=== PATIENT | female | born 1935 | race Caucasian/White ===

== ENCOUNTER 2016-09-16 14:31 | Inpatient (IN) | payer OTHER ==
[2016-09-16] MEDS ORDERED: ZOFRAN IV PRN (15:17)
[2016-09-16] MEDS ORDERED: TYLENOL PO PRN (15:17)
[2016-09-16] MEDS ORDERED: NS 1,000 ML IV PRN (15:17)
[2016-09-16] MEDS ORDERED: DIFLUCAN PO ONE (15:28)
[2016-09-16] MEDS ORDERED: FLUZONE QUAD 2016-2017 SYRINGE IM ONE (16:11)
--- NOTE | 2016-09-16 16:20 | HISTORY AND PHYSICAL ---
PRIMARY CARE PHYSICIAN: Dr. Marr. CHIEF COMPLAINT: Multiple falls, altered mental status, decreased appetite. HISTORY OF PRESENTING ILLNESS: This is an 80-year-old female who was seen at her primary care physician's office today and sent as a direct admit for having multiple falls at home, increased confusion with altered mental status, decreased appetite. Family at bedside and states that the patient has been falling almost on a daily basis at home and is unable to keep her center of balance and is leaning to the left when she ambulates and then falls without assistance. She is requiring increased amount of care. She has had increased confusion. Today she is able to tell me her name only but unable to tell me where she is, what month, day or year this is or is unable to tell me the name of the hospital. Her appetite has decreased according to the daughters who were are her caregiver. She has had some incontinent episode and vaginal itching. They feel that she most likely has a yeast infection. So at this time we will admit her. We will obtain a basic metabolic panel, a CBC, a magnesium, TSH and a UA with reflex culture today. Will get a head CT without contrast and a 2-view chest x-ray. Will start her on normal saline at 50 mL an hour, Zofran 4 mg IV q.4 hours p.r.n. and Tylenol along with a healthy heart diet and place her on telemetry and then she will be admitted for further evaluation and treatment. PAST MEDICAL HISTORY: Of vascular dementia, CVA, TIA, hypertension, COPD, emphysema, GERD, colon cancer x2 with her last chemotherapy in January 2013, irritable bowel syndrome, hypothyroidism, anxiety, depression and osteoarthritis. PAST SURGICAL HISTORY: Of colon resection with ileostomy and reversal of the colon resection x2, a port placement, bilateral knee replacement, cholecystectomy and a hysterectomy. FAMILY HISTORY: Noncontributory. SOCIAL HISTORY: She currently lives with her daughter. Denies any tobacco, alcohol, or illicit drug use. ALLERGIES: Morphine. HOME MEDICATIONS: We are obtaining a list of her home medications and we will restart those as appropriate. LABS: Again we are obtaining BMP, CBC, magnesium, TSH, UA with reflex culture today, a head CT without contrast and 2-view chest x-ray today. REVIEW OF SYSTEMS: Unable to obtain due to patient's confusion. PHYSICAL EXAMINATION: GENERAL: This is an 80-year-old female who is sitting on the side of the bed unable to answer all questions. Previous medical record and family at bedside to give history. HEENT: Normocephalic and atraumatic. Pupils are equal, round, reactive to light. Extraocular movements are intact. Oropharynx and nares are clear. NECK: Supple. LUNGS: Clear to auscultation bilaterally with equal lung expansion and chest wall movement. HEART: With regular rate and rhythm. No murmurs, rubs, or gallops. ABDOMEN: Soft, nontender, nondistended. Bowel sounds are present x4 quadrants. EXTREMITIES: No clubbing, cyanosis, or edema. NEUROLOGICAL: Cranial nerves 2-12 appear grossly intact. ASSESSMENT: 1. Altered mental status. 2. Multiple falls. 3. Vascular dementia history of worsening. 4. Vaginal candidiasis. 5. Hypertension. 6. Gastroesophageal reflux disease. 7. Hypothyroidism. PLAN: She has been admitted to the medical unit at [facility]. Placed on telemetry. Healthy heart diet. Again we are checking a BMP, CBC, magnesium, TSH and UA with reflex culture today, head CT without contrast and a 2-view chest x-ray today. Will place on normal saline at 50 mL an hour, Tylenol 650 mg p.o. q.4 hours p.r.n., Zofran 4 mg IV q.4 hours p.r.n., Diflucan 200 mg x1 now. Will obtain a current list of her home medications, restart those as appropriate. This most likely may be related to a urinary tract infection but again will have to wait on all of her labs and radiology report to review and further orders when those tests are resulted. Dictated by ARABELLA Glass for Samir Rosenbaum MD pt examined, discussed above plan with arabella, await results for further recoomendations [facility] MTDD
[2016-09-16 16:34] LABS: MANUAL DIFF NEEDED? NO
[2016-09-16 16:37] LABS: BASO% 0.6 % (0.0-0.8); EOS# 0.03 X1000 (0.0-0.7); EOS% 0.6 % (0.0-10.0); HEMATOCRIT 40.2 % (37.0-47.0); IMM GRAN# 0.02 X1000 (0.0-0.04); IMM GRAN% 0.4 % (0.0-0.5); LYMPH# 1.24 X1000 (1.2-3.4); MCH 28.3 PG (27-31); MCHC 32.3 g/dL (33-37); MCV 87.6 FL (81-99); MONO# 0.62 X1000 (0.11-0.59); MONO% 11.5 % (1.7-9.3); MPV 9.9 FL (7.4-10.4); NEUT% 63.9 % (42.2-75.2); PLT 239 X1000 (130-400); RBC 4.59 XMIL (4.2-5.4)
[2016-09-16 16:53] LABS: CALCIUM 10.8 mg/dL (8.8-10.2); MAGNESIUM 2.2 mg/dL (1.5-2.7); POTASSIUM 4.1 mmol/L (3.5-5.1)
[2016-09-16 17:29] LABS: URINE CULTURE PL NEEDED? NO
[2016-09-16 17:35] LABS: BILIRUBIN URINE NEGATIVE (NEGATIVE); BLOOD URINE NEGATIVE (NEGATIVE); CLARITY CLEAR (CLEAR); COLOR YELLOW; GLUCOSE URINE NEGATIVE (NEGATIVE); LEUKOCYTES URINE NEGATIVE (NEGATIVE); NITRITE URINE NEGATIVE (NEGATIVE); PROTEIN URINE NEGATIVE (NEGATIVE); UROBILINOGEN URINE NORMAL
[2016-09-16 17:42] LABS: URINE EPITHELIAL CELLS <10 /HPF (<10); URINE SOURCE CATH; URINE WBC <10 /HPF (<10)
[2016-09-16] MEDS: HALDOL IV PRN ×2 (18:23→22:19)
[2016-09-16] MEDS ORDERED: GEODON IM ONE (23:20)
[2016-09-16] MEDS ORDERED: STERILE WATER INJ. INJ ONE (23:20)
[2016-09-17 06:29] LABS: MANUAL DIFF NEEDED? NO
[2016-09-17 06:34] LABS: BASO% 0.3 % (0.0-0.8); EOS# 0.06 X1000 (0.0-0.7); HEMATOCRIT 37.6 % (37.0-47.0); HEMOGLOBIN 12.3 g/dL (12.0-16.0); IMM GRAN# 0.01 X1000 (0.0-0.04); IMM GRAN% 0.2 % (0.0-0.5); LYMPH# 1.19 X1000 (1.2-3.4); MCHC 32.7 g/dL (33-37); MCV 85.6 FL (81-99); MONO% 11.8 % (1.7-9.3); MPV 10.2 FL (7.4-10.4); NEUT% 66.7 % (42.2-75.2); PLT 220 X1000 (130-400); RBC 4.39 XMIL (4.2-5.4)
[2016-09-17 06:54] LABS: AGAP 9; BUN 10 mg/dL (8-22); CALCIUM 11.1 mg/dL (8.8-10.2); CHLORIDE 103 mmol/L (98-107); COSMO 279; POTASSIUM 3.5 mmol/L (3.5-5.1); SODIUM 140 mmol/L (136-145); TCO2 28 mmol/L (25-35)
--- NOTE | 2016-09-17 08:13 | Diag Imaging Result Document ---
PROCEDURE NAME: HEAD W/O CONTRAST - 09/16/[address] SCAN OF THE BRAIN: INDICATION: Altered mental status. Preliminary interpretation was given by the on-call radiologist. FINDINGS: There is diffuse cerebral atrophy. There is decreased attenuation within the deep white matter consistent with microvascular disease. There are old lacunar infarcts. No acute infarct or hemorrhage is appreciated. There is no midline shift or mass effect. The calvarium appears intact. There is some limitation of detail by patient motion. IMPRESSION: 1. Atrophy and microvascular disease. 2. No acute intracranial abnormality is appreciated.
--- NOTE | 2016-09-17 08:18 | Diag Imaging Result Document ---
PROCEDURE NAME: CHEST-2 VIEWS - 09/16/2016 CHEST, TWO VIEWS: INDICATION: Cough. FINDINGS: There is pulmonary emphysema. There is a right Port-A-Cath. The pulmonary vasculature is not congested. No acute infiltrates or effusions are demonstrated. There is a moderate hiatal hernia. IMPRESSION: 1. Emphysema. 2. No acute abnormality is identified.
--- NOTE | 2016-09-17 14:24 | PROGRESS NOTE ---
DATE: 09/17/2016 SUBJECTIVE: The patient sitting up in bed. No complaints voiced. OBJECTIVE: Vital Signs: Temperature 97.2 degrees, pulse 88, respirations 18, blood pressure 139/98, saturating 99% on room air. General: This is an 80-year-old female who is sitting up in the bed, is alert and oriented to person only. "She states she is getting ready to go home." HEENT: Normocephalic and atraumatic. Pupils are equal, round, and reactive to light. Extraocular movements are intact. Oropharynx and nares are clear. Neck is supple. Lungs are clear to auscultation bilaterally with equal lung expansion and chest wall movement. Heart with regular rate and rhythm. No murmurs, rubs, or gallops. Abdomen is soft, nontender, nondistended. Bowel sounds are present x4 quadrants. Extremities: No clubbing, cyanosis, or edema. Neurologic: The cranial nerves 2-12 appear grossly intact. LABORATORY DATA: White blood cell count of 5.95, hemoglobin 12.3, hematocrit 37.6, platelets 220,000. Sodium of 140, potassium 3.5, chloride 103, CO2 of 28. BUN of 10, creatinine 0.8. Glucose 103. Urinalysis from yesterday was negative. IMAGING: Head CT showed atrophy and microvascular changes. No acute intracranial abnormality was appreciated. Chest x-ray showed emphysema but no acute findings. ASSESSMENT AND PLAN: 1. Altered mental status. The patient remains confused and is alert and oriented to person only. 2. Multiple falls. We will consult physical therapy to evaluate and treat. 3. Vascular dementia, history of. It is worsening, and we will continue her medication regimen. 4. Vaginal candidiasis has been treated and will follow. 5. Hypertension. Continue current medication regimen. 6. Gastroesophageal reflux disease. 7. Hypothyroidism. We will recheck CBC and BMP in the a.m. Dictated by ARABELLA Glass for Samir Rosenbaum MD pt examined, agree with above, will check on hypercalcemia issues, r/o hyperparathyroidism [facility] MTDD
[2016-09-17] MEDS ORDERED: NORCO-10 PO PRN (15:24)
[2016-09-17] MEDS ORDERED: ZOFRAN PO PRN (15:24)
[2016-09-17] MEDS ORDERED: STERILE WATER INJ. ONE (15:37)
[2016-09-17] MEDS: GEODON IM PRN ×2 (15:41→21:39)
[2016-09-17] MEDS: XANAX PO PRN (18:38)
[2016-09-17] MEDS ORDERED: ZYPREXA ZYDIS PO ONE (19:02)
[2016-09-17] MEDS ORDERED: PHENOBARBITAL IV PRN (19:03)
[2016-09-17] MEDS: ZYPREXA ZYDIS PO SCH (20:12)
[2016-09-17] MEDS: STERILE WATER INJ. INJ PRN (21:40)
[2016-09-18] MEDS: XANAX PO PRN (00:21)
[2016-09-18 06:11] LABS: BASO% 0.7 % (0.0-0.8); EOS# 0.15 X1000 (0.0-0.7); EOS% 1.3 % (0.0-10.0); HEMATOCRIT 37.3 % (37.0-47.0); HEMOGLOBIN 11.8 g/dL (12.0-16.0); IMM GRAN# 1.48 X1000 (0.0-0.04); IMM GRAN% 13.1 % (0.0-0.5); LYMPH# 2.08 X1000 (1.2-3.4); LYMPH% 18.4 % (20.5-51.1); MANUAL DIFF NEEDED? YES; MCH 30.4 PG (27-31); MCHC 31.6 g/dL (33-37); MCV 96.1 FL (81-99); MONO# 0.78 X1000 (0.11-0.59); MONO% 6.9 % (1.7-9.3); MPV 8.6 FL (7.4-10.4); NEUT% 59.6 % (42.2-75.2); PLT 306 X1000 (130-400); RBC 3.88 XMIL (4.2-5.4)
[2016-09-18 06:50] LABS: AGAP 7; BUN 24 mg/dL (8-22); CALCIUM 8.9 mg/dL (8.8-10.2); CHLORIDE 103 mmol/L (98-107); COSMO 282; SODIUM 140 mmol/L (136-145); TCO2 30 mmol/L (25-35)
[2016-09-18] MEDS ORDERED: ZOFRAN ODT PO PRN (06:58)
[2016-09-18 07:17] LABS: EOS 1 % (1-10); LYMPHS 18 % (21-51); MONO 5 % (1-9)
[2016-09-18] MEDS ORDERED: HYDROXYZINE PO SCH (09:00)
[2016-09-18] MEDS: SYNTHROID PO SCH (10:39)
[2016-09-18] MEDS: ASPIRIN PO SCH (10:40)
[2016-09-18] MEDS: LEXAPRO PO SCH (10:40)
[2016-09-18] MEDS: PLAVIX PO SCH (10:40)
[2016-09-18] MEDS: FOLTX PO SCH (10:40)
--- NOTE | 2016-09-18 11:00 | PROGRESS NOTE ---
DATE: 09/18/2016 SUBJECTIVE: The patient is resting quietly in bed. Daughter at bedside. No complaints voiced. OBJECTIVE: Vital Signs: Temperature 97.8 degrees, pulse 94, respirations 20, blood pressure 110/70, satting 98% on room air. General: This is a an 80-year-old female, who is sitting up in the bed. No complaints voiced. HEENT: Normocephalic and atraumatic. Pupils are equal, round, reactive to light. Extraocular movements are intact. Oropharynx and nares are clear. Neck: Supple. Lungs: Were clear to auscultation bilaterally with equal lung expansion and chest wall movement. Heart: Regular rate and rhythm. No murmurs, rubs, or gallops. Abdomen: Soft, nontender, nondistended. Bowel sounds are present x4 quadrants. Extremities: No clubbing, cyanosis, or edema. Neurological: Cranial nerves 2-12 are grossly intact. LABORATORY DATA: Showed a white blood cell count of 11.30, hemoglobin 11.8, hematocrit 37.3, platelets 306. Sodium 140, potassium 4.0, chloride 103, CO2 30, BUN of 24 with a creatinine of 0.5. Calcium 8.9. PTH intact was 72. B 12 was 444 with a folate of 34. Her RPR was nonreactive. ASSESSMENT/PLAN: 1. Altered mental status is stable. She continues to be alert and oriented to person only. Confusion to place and time and situation. 2. Multiple falls. Physical therapy to evaluate and treat. 3. Hyperparathyroidism. Will get a parathyroid ultrasound today and evaluate those results. 4. Vascular dementia. Continue her medication regimen. 5. Hypertension. Continue her current medication regimen. Dictated by ARABELLA Glass for Samir Rosenbaum MD pt examined, agree with above working up hypercalcemia, but todays numbers are normal, will follow, scan is pending today , plan for dc to rehab tomorrow [facility]
--- NOTE | 2016-09-18 17:05 | Diag Imaging Result Document ---
PROCEDURE NAME: PARATHYROID - 09/18/2016 SESTAMIBI PARATHYROID SCAN: COMPARISON: CT cervical spine, 04/13/2016. FINDINGS: 20.7 millicurie of sestamibi was administered. Immediate and delayed images were obtained. There is slight persistent activity at the lower pole on the right side which may indicate a parathyroid adenoma here. IMPRESSION: Possible parathyroid adenoma at the inferior right pole of the thyroid bed.
[2016-09-18] MEDS: GEODON IM PRN (20:43)
[2016-09-18] MEDS: STERILE WATER INJ. INJ PRN (20:43)
[2016-09-18] MEDS: ZYPREXA ZYDIS PO SCH (20:54)
[2016-09-19] MEDS: STERILE WATER INJ. INJ PRN (00:32)
[2016-09-19] MEDS: GEODON IM PRN (00:33)
[2016-09-19 06:10] LABS: MANUAL DIFF NEEDED? NO
[2016-09-19 06:47] LABS: AGAP 9; BUN 17 mg/dL (8-22); CALCIUM 10.9 mg/dL (8.8-10.2); CHLORIDE 107 mmol/L (98-107); COSMO 283; POTASSIUM 4.1 mmol/L (3.5-5.1); SODIUM 141 mmol/L (136-145); TCO2 26 mmol/L (25-35)
[2016-09-19] MEDS: SYNTHROID PO SCH (06:50)
[2016-09-19 06:54] LABS: BASO% 0.6 % (0.0-0.8); EOS# 0.11 X1000 (0.0-0.7); EOS% 2.3 % (0.0-10.0); HEMATOCRIT 42.4 % (37.0-47.0); HEMOGLOBIN 13.7 g/dL (12.0-16.0); IMM GRAN# 0.01 X1000 (0.0-0.04); IMM GRAN% 0.2 % (0.0-0.5); LYMPH# 1.03 X1000 (1.2-3.4); LYMPH% 21.5 % (20.5-51.1); MCH 27.8 PG (27-31); MCHC 32.3 g/dL (33-37); MONO# 0.61 X1000 (0.11-0.59); MONO% 12.7 % (1.7-9.3); NEUT% 62.7 % (42.2-75.2); PLT 204 X1000 (130-400); RBC 4.93 XMIL (4.2-5.4)
[2016-09-19 08:54] VITALS: BP 107/67
[2016-09-19] MEDS: PLAVIX PO SCH ×2 (09:42→14:02)
[2016-09-19] MEDS: ASPIRIN PO SCH ×2 (09:42→14:04)
[2016-09-19] MEDS: LEXAPRO PO SCH ×2 (09:43→14:03)
[2016-09-19] MEDS: FOLTX PO SCH ×2 (09:43→14:04)
--- NOTE | 2016-09-19 11:55 | DISCHARGE SUMMARY ---
ADMISSION DATE: 09/16/2016 DISCHARGE DATE: 09/19/2016 DISCHARGE DIAGNOSES: 1. Generalized weakness. 2. Hyperparathyroidism. 3. Vascular dementia. 4. Cerebrovascular accident. 5. Mild hyperparathyroidism. 6. Vaginal candidiasis. HOSPITAL COURSE: Briefly, the patient is very confused. She has had multiple falls, altered mentation. She was not able to participate in her care. She came in for incontinence episodes and recurrent falls. Her workup in direct admission was negative for any acute process. She did have some mild degree of hypercalcemia, although pretty much throughout her stay with a calcium around 11. Patient had a mildly elevated PTH of 72. The patient was evaluated. Urine was negative. RPR negative. Chest x-ray negative. Head CT was negative. Her parathyroid scan did show a slightly enlarged parathyroid adenoma which was a bit more active than usual. Unclear if her hypercalcemia was related to that. She did have significant confusion and sundowning while she was here and required sedating medications at night, including Geodon and phenobarbital. She is allergic to Ativan. She has been relatively lethargic unfortunately during the day because of getting sedating medications at night. This will likely be an issue while she is at the facility and will need to be slowly adjusted. Other discharge paperwork is negative. I would follow up on her calcium in 1 week. I consider outpatient referral for hyperparathyroidism if she is still clinically stable. We will discharge to rehabilitation today. DISCHARGE MEDICATIONS: 1. [place] p.r.n. 2. Aspirin 81 daily. 3. Plavix 75 daily. 4. Lexapro 10 daily. 5. Synthroid 100 daily. 6. Zofran p.r.n. 7. Xanax 1 b.i.d. 8. Folbic 1 daily. May make a case for emfolic acid. She is already getting that medication. 9. She is on Namenda 14 XR, so I think we are going to resume that as well. TIME SPENT: 32 minute discharge.
== END 2016-09-19 14:05 | DRG 884 ==
LOC: P.DIRADM 14:31 → P.MEDSURG 14:44
PROVIDERS: ATTEND Internal Medicine
DX: F01.50 Vascular dementia, unspecified severity, without behavioral disturbance, psychotic disturbance, mood disturbance, and anxiety (principal); R63.0 Anorexia; I10 Essential (primary) hypertension; Z68.1 Body mass index [BMI] 19.9 or less, adult; R41.82 Altered mental status, unspecified; B37.3 Candidiasis of vulva and vagina; E03.9 Hypothyroidism, unspecified; E21.3 Hyperparathyroidism, unspecified; D35.1 Benign neoplasm of parathyroid gland; R53.1 Weakness; K58.9 Irritable bowel syndrome, unspecified; K21.9 Gastro-esophageal reflux disease without esophagitis; M19.90 Unspecified osteoarthritis, unspecified site; F41.9 Anxiety disorder, unspecified; F32.9 Major depressive disorder, single episode, unspecified; Z92.21 Personal history of antineoplastic chemotherapy; Z85.038 Personal history of other malignant neoplasm of large intestine; Z86.73 Personal history of transient ischemic attack (TIA), and cerebral infarction without residual deficits; Z91.81 History of falling; Z96.653 Presence of artificial knee joint, bilateral; Z90.49 Acquired absence of other specified parts of digestive tract
CPT/HCPCS: 36415; 70450; 71020; 78070; 80048; 81001; 82607; 82746; 83735; 83970; 84443; 85025; 86592; A9500; J1630; J3486; J7030; Q2038

== ENCOUNTER 2016-09-20 10:51 | Inpatient (IN) | payer OTHER ==
--- NOTE | 2016-09-20 10:58 | PROVIDER DOCUMENTATION ---
HPI-General Adult - General Chief Complaint: Unresponsive Stated Complaint: Unresponsive Source: RN/MD, EMS Unable to obtain history due to:: altered Allergies/Adverse Reactions: Patient Allergies Allergy/AdvReac Type Severity Reaction Status Date / Time lorazepam [From Ativan] Allergy Severe SHORTNESS Verified 09/20/16 11:37 OF BREATH morphine Allergy Severe STOPS Verified 09/20/16 11:37 BREATHING Home Medications: Home Medication List Medication Instructions Recorded Confirmed Last Taken Type Aspirin [Shahnaz Chewable Aspirin] 81 mg PO DAILY 08/17/15 09/20/16 09/20/16 09: 00 History Clopidogrel Bisulfate [Plavix] 75 mg PO WBREAKFAST 08/17/15 09/20/16 09/20/16 09 :00 History Escitalopram Oxalate [Lexapro] 10 mg PO DAILY 08/17/15 09/20/16 09/20/16 09:00 History Levothyroxine [Synthroid] 100 microgm PO DAILY@0700 08/17/15 09/20/16 09/20/16 07:00 History Cyanocobalamin/FA/Pyridoxine 1 each PO DAILY 09/16/16 09/20/16 09/20/16 09:00 History [Folbic Tablet] Ondansetron HCl 4 mg PO PRN PRN 09/16/16 09/20/16 Unknown History Alprazolam 1 mg PO BID #60 tablet 09/19/16 09/20/16 09/20/16 09:00 Rx Hydrocodone Bit/Acetaminophen 1 each PO BID PRN PRN #60 tablet 09/19/16 Unknown Rx [Hydrocodon-Acetaminophn 10-325] Memantine HCl [Namenda Xr] 14 mg PO DAILY #30 cap.spr.24 09/19/16 09/20/1609/20 09:00 Rx - History of Present Illness -Gen Adult Nature of Presenting Problems: 80 y/o female presents to the ER via EMS unresponsive. Pt is a resident at a alf. Nurse at alf stated that she was awake and speaking around 8 this morning but around 9:45 they found her unresponsive. Pt was seen at [facility] 4 days ago for UTI and worsening dementia. Review of Systems - Adult - REVIEW OF SYSTEMS - ADULT ROS:: unobtainable per condition Past History - Adult - PAST MEDICAL HISTORY-ADULT Review of Records: reports: Nursing Assessment Review, Medications Reviewed Major Childhood Illnesses: reports: denies history Cardiovascular: reports: hyperlipidemia. denies: HTN (hypotension) Respiratory: reports: COPD Gastrointestinal: reports: cancer (colon), GERD Musculoskeletal: reports: arthritis (osteoarthritis) Neurological: reports: Alzheimer's, CVA, dementia, TIA Endocrine/Immune: reports: thyroid disorder (hypo) - PRIOR SURGERIES/PROCEDURES Surgical/Procedure History: reports: cholecystectomy, hysterectomy, indwelling device (port placement), joint replacement (Total knee replacement), other ( Colon resection; colostomy and reversal; arthroplasty) - IMMUNIZATION STATUS Childhood Immunizations: UTD, See Nurse Assessment Flu Vaccine: See Nurse Assessment Physical Exam-General - PHYSICAL EXAM-ADULT Exam Limited by: unresponsive - PSYCHIATRIC Psych/Mental Status: disoriented x 3 Progress - CONSULTS/PCP/HOSPITALIST Notification #1 *Consult/PCP/Hospitalist*: Consult Dr. Talbert, he will admit Time Discussed: 13:27 Consult Disposition: Admit Departure - Departure Time of Disposition Order: 15:57 (additional diagnosis decreased level of responsiveness) DIAGNOSIS: Mild dehydration, UTI (urinary tract infection), uncomplicated Disposition: ADMITTED INPATIENT 09 Certified Medical Emergency: Emergent Condition: Stable Referrals: Evelyn Otto MD [Primary Care Provider] - Attestation - Scribe Verification/Attestation Scribe:: Viri Tellez Acting as Scribe for:: Yon Russ Scribe documention review:: This chart was documented by a scribe and accurately reflects the service the provider performed and the decisions made by the provider.
[2016-09-20] MEDS ORDERED: NARCAN IV ONE (11:50)
[2016-09-20 12:01] LABS: MANUAL DIFF NEEDED? NO
[2016-09-20 12:04] LABS: BASO% 0.2 % (0.0-0.8); EOS% 1.1 % (0.0-10.0); HEMATOCRIT 40.5 % (37.0-47.0); HEMOGLOBIN 13.5 g/dL (12.0-16.0); IMM GRAN# 0.02 X1000 (0.0-0.04); IMM GRAN% 0.2 % (0.0-0.5); LYMPH# 0.99 X1000 (1.2-3.4); LYMPH% 10.6 % (20.5-51.1); MCH 28.7 PG (27-31); MCHC 33.3 g/dL (33-37); MONO# 0.93 X1000 (0.11-0.59); MONO% 9.9 % (1.7-9.3); MPV 10.2 FL (7.4-10.4); PLT 184 X1000 (130-400); RBC 4.71 XMIL (4.2-5.4)
[2016-09-20 12:16] LABS: AGAP 11; ALBUMIN 3.6 g/dL (3.5-5.0); ALKALINE PHOSPHATASE 99 U/L (32-104); BUN 17 mg/dL (8-22); CALCIUM 9.9 mg/dL (8.8-10.2); CHLORIDE 102 mmol/L (98-107); COSMO 275; GOT 15 U/L (10-30); GPT 12 U/L (10-36); SODIUM 137 mmol/L (136-145); TCO2 24 mmol/L (25-35); TOTAL BILIRUBIN 0.44 mg/dL (0.20-1.00); TOTAL PROTEIN 6.1 g/dL (6.3-8.3)
[2016-09-20 13:57] LABS: URINE MICRO REVIEW NEEDED? NO; URINE SOURCE CATH
[2016-09-20 14:01] LABS: BILIRUBIN URINE NEGATIVE (NEGATIVE); BLOOD URINE MODERATE (NEGATIVE); COLOR YELLOW; GLUCOSE URINE NEGATIVE (NEGATIVE); LEUKOCYTES URINE LARGE (NEGATIVE); NITRITE URINE NEGATIVE (NEGATIVE); PH URINE 5.5; PROTEIN URINE 50 mg/dL (NEGATIVE); SP GRAVITY URINE 1.007; TURBIDITY URINE HAZY (CLEAR); UR EPITHELIAL CELLS <10 /HPF (<10); URINE BACTERIA NEGATIVE /HPF; URINE RBC <10 /HPF (<10); URINE WBC TNTC /HPF (<10); UROBILINOGEN URINE NORMAL (NORMAL)
--- NOTE | 2016-09-20 14:10 | Diag Imaging Result Document ---
PROCEDURE NAME: CHEST-PORTABLE - 09/20/2016 PORTABLE CHEST: COMPARISON: 09/16/2016. FINDINGS: Heart size appears upper normal. There is an air-containing retrocardiac density compatible with hiatal hernia. The lungs appear less hyperexpanded compared to the previous exam. The lungs appear essentially clear. There is no pleural effusion or pneumothorax identified. Central venous catheter remains. IMPRESSION: Hiatal hernia. No evidence of acute disease.
[2016-09-20 14:20] LABS: UR AMPHETAMINES QUAL NONE DETECTED (NONE DETECT); UR BARBITUATES QUAL NONE DETECTED (NONE DETECT); UR BENZODIAZEPIN QUAL PRESUMPTIVE POSITIVE (NONE DETECT); UR CANNABINOIDS QUAL NONE DETECTED (NONE DETECT); UR COCAINE QUAL NONE DETECTED (NONE DETECT); UR METHADONE QUAL NONE DETECTED (NONE DETECT); UR OPIATES QUAL NONE DETECTED (NONE DETECT); UR OXYCODONE QUAL NONE DETECTED (NONE DETECT); UR PCP QUAL NONE DETECTED (NONE DETECT)
--- NOTE | 2016-09-20 14:59 | Diag Imaging Result Document ---
PROCEDURE NAME: HEAD W/O CONTRAST - 09/20/2016 CT HEAD WITHOUT CONTRAST: A dose-reduction protocol was used. COMPARISON: 09/16/2016. FINDINGS: There are atrophic changes and chronic microvascular ischemic changes similar to the previous exam. There is no evidence of recent infarct, although acute infarcts may not be immediately visible. There is no hemorrhage, mass effect, or midline shift identified. There is no skull fracture. IMPRESSION: Atrophic changes and chronic microvascular ischemic changes similar to the previous exam. No visible acute process. No hemorrhage or mass effect.
[2016-09-20] MEDS ORDERED: ROCEPHIN 1 GM/NS 50 ML IV ONE (15:23)
[2016-09-20] MEDS ORDERED: NS 1,000 ML IV ONE (15:24)
[2016-09-20] MEDS ORDERED: ZOFRAN PO PRN (15:59)
[2016-09-20] MEDS ORDERED: NORCO-10 PO PRN (15:59)
[2016-09-20] MEDS ORDERED: ZOFRAN IV PRN (16:02)
[2016-09-20] MEDS ORDERED: TYLENOL PO PRN (16:02)
[2016-09-20 16:35] LABS: ALLEN TEST YES; BE 0.3 mmoll (-3.0-3.0); BLOOD TYPE ARTERIAL; DRAW SITE R RADIAL; METHB 1.5 % (0.0-1.5); O2(CT) 17.6 mL/dL (15.0-23.0); PO2(98.6) 255 mmHg (60-100); SAMPLE BLOOD; SAO2 100.2 % (95.0-100.0); THB 12.5 g/dL (11.5-17.4); pH(98.6) 7.26 (7.35-7.45)
[2016-09-20 16:38] LABS: MODALITY CANNULA
[2016-09-20] MEDS: NS 1,000 ML IV SCH (18:34)
[2016-09-20] MEDS: XANAX PO SCH (20:17)
[2016-09-21] MEDS: NS 1,000 ML IV SCH ×2 (05:36→22:22)
[2016-09-21] MEDS: SYNTHROID PO SCH (06:00)
[2016-09-21 06:14] LABS: MANUAL DIFF NEEDED? NO
[2016-09-21 06:17] LABS: BASO% 0.2 % (0.0-0.8); EOS# 0.09 X1000 (0.0-0.7); EOS% 1.8 % (0.0-10.0); HEMATOCRIT 40.1 % (37.0-47.0); LYMPH# 0.66 X1000 (1.2-3.4); LYMPH% 13.4 % (20.5-51.1); MCH 28.3 PG (27-31); MCHC 32.4 g/dL (33-37); MCV 87.4 FL (81-99); MONO# 0.44 X1000 (0.11-0.59); MONO% 8.9 % (1.7-9.3); NEUT% 75.7 % (42.2-75.2); PLT 185 X1000 (130-400); RBC 4.59 XMIL (4.2-5.4)
[2016-09-21 06:52] LABS: AGAP 12; BUN 16 mg/dL (8-22); CALCIUM 10.3 mg/dL (8.8-10.2); CHLORIDE 106 mmol/L (98-107); COSMO 282; POTASSIUM 4.2 mmol/L (3.5-5.1); SODIUM 141 mmol/L (136-145); TCO2 23 mmol/L (25-35)
--- NOTE | 2016-09-21 07:22 | HISTORY AND PHYSICAL ---
PCP: Nicholas Lee. CHIEF COMPLAINT: Unresponsive. HPI: The patient is an 80-year-old white female with a past medical history of severe dementia, coronary artery disease, previous smoker who was discharged from [facility] to the rehab yesterday and was brought back this morning because the patient would not wake up. According to the family the halfway staff called the family to report that the patient was doing okay this morning and then about 30 minute better she would not wake up for them. On further history the patient was getting Geodon prior to go to the halfway. Overnight at the halfway the patient keeps going out of the door and tried to go home and she would give more Xanax and possibly more Geodon and the patient has been very sleepy and when I saw her she appears to be comfortable. Her vital signs were stable. The patient opened her eyes with the sternal rub but does not follow any commands. The patient is always having confusion according to the family. She has been living with her 2 daughters and at times she would recognize the daughter but most of the time she does not. She had a battery of lab work in the emergency room and they all look relatively normal the patient did not have the ABG. PAST MEDICAL HISTORY: 1. Vascular dementia. 2. Essential CVA, TIA. 3. Hypertension. 4. COPD. 5. Emphysema. 6. GERD. 7. Colon cancer x2. 8. Irritable bowel syndrome. 9. Hypothyroidism. 10. Anxiety and depression situational. 11. Arthritis. PAST SURGICAL HISTORY: The patient had colon resection with ileostomy x2, port placement, bilateral knee replacement, cholecystectomy and hysterectomy. FAMILY HISTORY: Was reviewed were noncontributory. SOCIAL HISTORY: The patient lives with her 2 daughters, previous smoker, no alcohol, no drugs. ALLERGIES: The patient allergic to Ativan and morphine. HOME MEDICATIONS: 1. Aspirin 81 mg p.o. daily. 2. Plavix 75 mg p.o. daily. 3. Lexapro 10 mg p.o. daily. 4. Synthroid 100 mg p.o. daily. 5. Zofran 4 mg p.o. p.r.n. 6. Folbic 1 tablet p.o. daily. 7. Oxycodone/acetaminophen 1 tablet p.o. twice a day as needed for pain. 8. Xanax 1 mg b.i.d. 9. Namenda 14 mg every 24 hours. REVIEW OF SYSTEMS: Unable to obtain. OBJECTIVE: Vital signs: Blood pressure 105/61, pulse of 56, respirations 13, temperature 97.4 degrees, saturations of 99% on room air. General appearance: Thin white female in no acute distress and drowsy. HEENT: Anicteric. Clear conjunctivae. Poor dentition. Neck: Supple. No JVD. No bruit. Cardiovascular: S1, S2. Normal rate and rhythm. No murmur, rubs, or gallops. Pulmonary: Clear to auscultation bilaterally. GI: Soft, nontender, nondistended. Normoactive bowel sounds. Musculoskeletal: No clubbing, cyanosis or edema. LABORATORY: White count 9.36, hemoglobin 13.5, hematocrit of 40.5, platelets 184,000. Sodium 136, potassium 4.0, chloride 102, bicarb 24, BUN 17, creatinine 0.8, glucose of 99. Liver function tests within normal limits. UA reviewed, and UDS reviewed. CAT scan the brain just showed atrophic changes with chronic microvascular changes, no acute process, no bleeding. Chest x-ray showed no acute process. ASSESSMENT AND PLAN: Patient is an 80-year-old white female with severe dementia and weakness falling at home was sent to the halfway yesterday and brought back in for altered mentation. 1. Altered mentation probably. The patient had received her sedatives and antipsychotic at the halfway in conjunction given to her at [employer] prior to going to a halfway. I do not believe that the patient was awake and then 30 minutes later she has become unconscious. She is awake with sternal rub but she does not converse. Vitals are stable. Will monitor the patient in-house. Will put under observations. The family requests do not resuscitate the patient. To continue with the current medical management. 2. History transient ischemic attack and cerebrovascular accident. The patient on Plavix and aspirin. 3. Dementia. Will continue Namenda and Aricept. 4. Weakness and falling. Once the patient becomes more lucent will send the patient back to the rehab.
[2016-09-21] MEDS: XANAX PO SCH (08:58)
[2016-09-21] MEDS: PLAVIX PO SCH (08:58)
[2016-09-21] MEDS: FOLTX PO SCH (08:59)
[2016-09-21] MEDS: ASPIRIN PO SCH (08:59)
[2016-09-21] MEDS: LEXAPRO PO SCH (08:59)
[2016-09-21] MEDS: NAMENDA XR PO SCH (08:59)
[2016-09-21] MEDS ORDERED: NAMENDA XR PO SCH (09:00)
--- NOTE | 2016-09-21 14:31 | PROGRESS NOTE ---
DATE: 09/21/2016 SUBJECTIVE: The patient responds by grimacing with pain stimuli. No acute event reported by the overnight staff. Her daughter was at the bedside. All questions were invited and entertained. OBJECTIVE: Vital signs: Blood pressure 102/70, pulse of 59, respiration 16, temperature 96.6 degrees, saturation 100% on 2 L nasal cannula. General appearance: Thin white female in no acute distress. HEENT: Anicteric. Clear conjunctivae. Neck: Supple. No JVD. No bruit. Cardiovascular: S1, S2. Normal rate and rhythm. No murmurs, rubs, or gallops. Pulmonary: Clear to auscultation bilaterally. GI: Soft, nontender, nondistended. Normoactive bowel sounds. Musculoskeletal: No clubbing, cyanosis, or edema. ASSESSMENT AND PLAN: This is an 80-year-old white female admitted to the hospital for altered mental status. 1. Altered mental status, probably secondary to sedatives and Geodon. We stopped Xanax and we will see if the patient starts waking up. Discussed with the daughter and she agreed with home hospice. We will consult director social welfare tomorrow to make the arrangement for home hospice. Will keep everything as is for now and will transition the patient home once we are able to set up the equipment at home. 2. Dementia, end-stage. We will continue on Namenda. 3. Hypothyroidism. Continue Synthroid. 4. Code status. The patient is a DNR level 1.
[2016-09-21] MEDS ORDERED: HALDOL IV ONE (22:52)
[2016-09-22 01:45] LABS: URINE CULTURE NEEDED? NO; URINE SOURCE CATH
[2016-09-22 01:46] LABS: URINE MICRO REVIEW NEEDED? NO
[2016-09-22 01:50] LABS: BILIRUBIN URINE NEGATIVE (NEGATIVE); BLOOD URINE NEGATIVE (NEGATIVE); COLOR YELLOW; GLUCOSE URINE NEGATIVE (NEGATIVE); LEUKOCYTES URINE NEGATIVE (NEGATIVE); NITRITE URINE NEGATIVE (NEGATIVE); PH URINE 5.5; PROTEIN URINE TRACE mg/dL (NEGATIVE); SP GRAVITY URINE 1.018; TURBIDITY URINE CLEAR (CLEAR); UROBILINOGEN URINE NORMAL (NORMAL)
[2016-09-22 01:59] LABS: UR EPITHELIAL CELLS <10 /HPF (<10); URINE BACTERIA NEGATIVE /HPF; URINE RBC <10 /HPF (<10); URINE WBC <10 /HPF (<10)
[2016-09-22 08:08] LABS: PCO2(98.6) 64 mmHg (35-45)
[2016-09-22] MEDS: NAMENDA XR PO SCH (08:56)
[2016-09-22] MEDS: FOLTX PO SCH (08:56)
[2016-09-22] MEDS: SYNTHROID PO SCH (08:56)
[2016-09-22] MEDS: ASPIRIN PO SCH (08:56)
[2016-09-22] MEDS: PLAVIX PO SCH (08:56)
[2016-09-22] MEDS: LEXAPRO PO SCH (08:56)
[2016-09-22] MEDS: NS 1,000 ML IV SCH (08:57)
--- NOTE | 2016-09-22 10:29 | EKG Report ---
Test Performed on : 09/20/2016 11:07:28 AM Test Reason : ED> Not ordered in [place] Blood Pressure : / mmHG Vent. Rate : 067 BPM Atrial Rate : 067 BPM P-R Int : 140 ms QRS Dur : 084 ms QT Int : 410 ms P-R-T Axes : 054 -05 029 degrees QTc Int : 433 ms Normal sinus rhythm. Normal ECG No previous ECGs available Unconfirmed Result
--- NOTE | 2016-09-22 18:18 | PROGRESS NOTE ---
DATE: 09/22/2016 SUBJECTIVE: The patient is awake and back to her baseline as per the daughter. OBJECTIVE: Vital Signs: Temperature 97 degrees, blood pressure 139/70, heart rate 64, respirations 17, O2 saturations 100% on 2 L nasal cannula. General: This is an elderly female, lying in bed, in no acute distress. Head: Normocephalic, atraumatic. Heart: S1, S2. Normal. Regular rate and rhythm. Lungs: Clear to auscultation bilaterally. No wheezes, no rales. No rhonchi. Abdomen: Positive bowel sounds. Soft, nontender, nondistended. Extremities: No edema. No cyanosis. Neurologic: The patient is awake, but demented. LABORATORY: None. ASSESSMENT AND PLAN: 1. Metabolic encephalopathy, resolved. The patient is back to baseline. 2. Alzheimer's dementia. Aware. Continue on Namenda. 3. Hypothyroidism. Continue on Synthroid. 4. History of cerebrovascular accident and transient ischemic attack. Continue on Plavix. 5. Disposition. We will plan to discharge the patient home with home health tomorrow. Continue with physical therapy.
[2016-09-22] MEDS ORDERED: HALDOL IV ONE (19:39)
[2016-09-22] MEDS ORDERED: HALDOL IM PRN ×2 (19:40→19:43)
[2016-09-23 06:14] VITALS: BP 116/66
[2016-09-23 07:13] LABS: AGAP 11; BUN 15 mg/dL (8-22); CALCIUM 10.8 mg/dL (8.8-10.2); CHLORIDE 105 mmol/L (98-107); COSMO 283; SODIUM 142 mmol/L (136-145); TCO2 26 mmol/L (25-35)
[2016-09-23] MEDS: SYNTHROID PO SCH (08:06)
[2016-09-23] MEDS: LEXAPRO PO SCH (09:09)
[2016-09-23] MEDS: FOLTX PO SCH (09:09)
[2016-09-23] MEDS: NAMENDA XR PO SCH (09:09)
[2016-09-23] MEDS: PLAVIX PO SCH (09:09)
[2016-09-23] MEDS: ASPIRIN PO SCH (09:09)
--- NOTE | 2016-09-23 09:43 | DISCHARGE SUMMARY ---
ADMISSION DATE: 09/22/2016 DISCHARGE DATE: 09/23/2016 CONSULTATIONS: None. PERTINENT PROCEDURES: Head CT showed atrophic changes and chronic microvascular ischemic changes similar to previous exam. Chest x-ray showed hiatal hernia, no evidence of acute disease. DISCHARGE DIAGNOSES: 1. Altered mental status secondary to sedated on Geodon. has discussed the situation with the daughter; they have agreed for home hospice. The patient is being discharged home with hospice. 2. Dementia, end-stage. 3. Hypothyroidism on Synthroid. 4. Code status DNR level 1. HOSPITAL COURSE: Briefly, Ms. Cronin is an 80-year-old female with past medical history of severe dementia, coronary artery disease, previous smoker discharged from [facility] to rehabilitation the day before her admission. She was brought back in the morning because the patient would not wake up. According to the family, the nursing staff called the family to report the patient was doing okay that morning. Then about 30 minutes or better, she would not wake up for them. On further history, the patient was getting Geodon prior to going to the longterm. Overnight at the longterm, the patient kept going out of the door and tried to go home. She was given Xanax and possibly more Geodon. Patient had been very sleepy, and in the ED she appeared to be comfortable. Her vital signs are stable. The patient would open her eyes with a sternal rub, but did not follow any commands. Per the family, the patient was always having confusion. She had been living with her 2 daughters; at times she would recognize them, but most of the time she would not. She had a battery of lab work done in the ED; they were all relatively normal. The patient was admitted for altered mentation secondary to receiving sedatives and antipsychotics at the longterm, in conjunction with those that she was given at [place] prior to going to the longterm. The family requested a DNR level 1. Head CT did not show anything acute. After spoke with the family, they agreed to take her home with home hospice. Those arrangements have been made. She is going home with family on hospice. Discharge medications as per Dr. Alcantar, please see MAR. FOLLOWUP: Patient is being discharged home with hospice. DISCHARGE TIME: 30 minutes. Dictated by ARABELLA Ivey for Yola Alcantar MD
--- NOTE | 2016-09-23 16:59 | DISCHARGE SUMMARY ---
ADMISSION DATE: 09/22/2016 DISCHARGE DATE: 09/23/2016 CONSULTATIONS: None. PERTINENT PROCEDURES: Head CT shows atrophic changes with chronic microvascular ischemic changes similar to previous exam. No visible acute process. No hemorrhage or mass effect. Chest x-ray showed a hiatal hernia. No evidence of acute disease. DISCHARGE DIAGNOSES: 1. Metabolic encephalopathy, resolved; patient back to baseline. 2. Alzheimer's dementia. We are continuing Namenda. 3. Hypothyroidism. Continue Synthroid. 4. Cerebrovascular accident and transient ischemic attack history. Continue on Plavix. HOSPITAL COURSE: Ms. Cronin is an 80-year-old female with a past medical history of severe dementia, coronary artery disease, previous smoker, who was discharged from [facility] [place] to rehab the day before her admission. She was brought back the next day because the patient would not wake up according to the family. The nursing staff called the family to report she was doing okay in the morning and then about 30 minutes or better they could not get her to wake up for them. On further history, the patient was getting Geodon [facility] to [facility] the [facility]. Overnight the patient kept getting out and going to the door and tried to go home. She was given Xanax and possibly more Geodon. Patient became very sleepy. While in the ED her vital signs remained stable. The patient would open her eyes with a sternal rub but did not follow any commands. The patient does have confusion according to the family. She has been living with her 2 daughters and at times she would recognize them but most of the time she would not. She had a battery of laboratory data done in the ED that was all relatively normal. The patient was admitted for metabolic encephalopathy secondary to and antipsychotics. Head CT did not show anything acute. The patient was made a DNR level 1 while she was here. Initially the family was going to take the patient home with hospice. The patient continued to the only respond by grimacing with painful stimuli. Again, any sedatives as well as Geodon, Xanax, and others were stopped. On 09/22/2016 patient did come around back to her baseline. They withdrew hospice and the daughters are going to take her back home with home health. VITAL SIGNS: At time of discharge, temperature is 98.1 degrees, heart rate 74, respirations 18, blood pressure is 116/66, O2 is 96% on room air. DISCHARGE DIET: Healthy heart. DISCHARGE MEDICATIONS: 1. Shahnaz aspirin 81 mg p.o. daily. 2. Plavix 75 mg p.o. with breakfast. 3. Lexapro 10 mg p.o. daily. 4. Synthroid 100 mcg p.o. daily. 5. Zofran 4 mg p.o. p.r.n. 6. Folbic tablet 1 each p.o. daily. 7. [place] 1 each p.o. b.i.d. p.r.n. 8. Xanax 1 mg p.o. b.i.d. 9. Namenda XR 14 mg p.o. daily. FOLLOWUP: Ms. Cronin is being discharged home with her daughters with home health. She is to follow up with her primary care physician, Nicholas Otto II, MD, in 1 week. The patient can return to the ED for any worsening of symptoms. DISCHARGE TIME: 30 minutes. Dictated by ARABELLA Ivey for Yola Alcantar MD
== END 2016-09-23 11:29 | disposition home health service (06) | DRG 917 ==
LOC: EDBD → SUPCPDRO 10:51 → ED 10:51 → 3N 17:52 → OBSVTOIN 09-22 12:55
PROVIDERS: ATTEND Internal Medicine
DX: T43.591A Poisoning by other antipsychotics and neuroleptics, accidental (unintentional), initial encounter (principal); G92 Toxic encephalopathy; J43.9 Emphysema, unspecified; G30.9 Alzheimer's disease, unspecified; F01.50 Vascular dementia, unspecified severity, without behavioral disturbance, psychotic disturbance, mood disturbance, and anxiety; T42.4X1A Poisoning by benzodiazepines, accidental (unintentional), initial encounter; I10 Essential (primary) hypertension; E03.9 Hypothyroidism, unspecified; K21.9 Gastro-esophageal reflux disease without esophagitis; K58.9 Irritable bowel syndrome, unspecified; M19.90 Unspecified osteoarthritis, unspecified site; F41.9 Anxiety disorder, unspecified; F43.21 Adjustment disorder with depressed mood; Z66 Do not resuscitate; Z79.899 Other long term (current) drug therapy; Z79.82 Long term (current) use of aspirin; Z79.02 Long term (current) use of antithrombotics/antiplatelets; Z91.81 History of falling; Z86.73 Personal history of transient ischemic attack (TIA), and cerebral infarction without residual deficits; Z85.038 Personal history of other malignant neoplasm of large intestine; Z90.49 Acquired absence of other specified parts of digestive tract; F02.80 Dementia in other diseases classified elsewhere, unspecified severity, without behavioral disturbance, psychotic disturbance, mood disturbance, and anxiety
CPT/HCPCS: 70450; 71010; 80048; 80053; 81001; 82805; 82948; 84484; 85025; 93005; 96365; 96375; G0480; J0696; J1630; J2310; J7030; 80324; 80345; 80346; 80349; 80353; 80358; 80361; 80365; 83992; 97116-GP